=== PATIENT | female | born 1990 | race Caucasian/White ===

== ENCOUNTER 2021-02-09 07:33 | Outpatient (CLI) | payer MEDICAID, SELFPAY ==
--- NOTE | 2021-02-09 07:43 | US_ITS ---
WS: [id number] EARLY OBSTETRICAL ULTRASOUND (<14 WEEKS). HISTORY: SUPERVISION NORMAL , MULTIPAROUS COMPARISON: None available. Single intrauterine gestational sac is identified. Cardiac activity at 153 BPM. [place]-rump length tyler sures 1.1 cm which corresponds to a gestation of 7w2d. Normal-appearing yolk sac and amnion demonstra aarti. Very small subchorionic hemorrhage.Maximum diameter is 8 mm along the posterior gestational sac. No free fluid. Normal size ovaries with no mass. US/US OB <= 14 weeks fetus [id number] IMPRESSION: 1. Single intrauterine gestation of 7 weeks 2 days with an EDC of 09/26/2021. 2. Normal cardiac activity.
== END 2021-02-09 07:34 | disposition home or self-care (01) ==
LOC: RAD 07:38
PROVIDERS: PCP Family Medicine; Visit Provider Family Medicine
DX: Z34.80 Encounter for supervision of other normal pregnancy, unspecified trimester (principal); Z3A.01 Less than 8 weeks gestation of pregnancy
CPT/HCPCS: 76801

== ENCOUNTER 2021-03-25 14:31 | Emergency (ER) | payer SELFPAY ==
[2021-03-25 14:42] VITALS: BP 119/77; PULSE 93; RESP 16; TEMP 36.8; O2SAT 96; BMI 25.2
--- NOTE | 2021-03-25 15:39 | US_ITS ---
WS: [id number] Obstetrical ultrasound, limited. HISTORY: Threatened . COMPARISON: 02/09/2021. Single intrauterine gestation is identified. Heart rate at 160 bpm. Cervix is closed. Placenta is pos terior. Accurate placental positioning is not accurate at this early gestational age. Biometry consi stent with a gestation of 14 weeks and 1 day. Appropriate growth of the fetus since the prior ultraso und. No free fluid or adnexal masses. US/US OB limited [id number] IMPRESSION: 1. Normal cardiac activity. 2. Cervix is closed. 3. No retroplacental hemorrhage or abruption.
--- NOTE | 2021-03-25 15:43 | ED_ITS ---
HPI - General: Chief complaint: Vaginal Bleeding Stated complaint: 13 wks preg & spotting Time Seen by Provider: 03/25/21 15:36 History of Present Illness: HPI Narrative: This patient is a 31-year-old female who presents to the emergency department with complaint of vaginal bleeding. Patient states she is 13 weeks . Patient states she has had bright red blood when she is to the bathroom with a couple of clots. Patient states she believes her blood type is B-. Patient states that she had to have a RhoGam shot at 7 weeks. Patient states she has had to have RhoGam shots with all of her other pregnancies. Patient states that she is a G4, P3. Will do medical evaluation treat as needed. Complaint: vaginal bleeding Onset (ago): hour(s) Pain Consistency: intermittent Relieving factors: none Exacerbating factors: none Vaginal bleeding: light and clots Date of Last Menstrual Period: 12/09/20 Associated symptoms: Deny abdominal pain, dysuria, headache(s), nausea or vomiting Review of Systems General: Reports: 10 or more systems reviewed and unremarkable except in HPI and below Const: Denies: fever(s), chills, body aches or fatigue Eyes: Denies: change in vision or blurry vision ENMT: Denies: throat pain, hoarseness or mouth pain Card: Denies: chest pain, palpitations, irregular heart rhythm, edema, swelling of feet/ankles or lightheadedness Resp: Denies: dyspnea, productive cough, non-productive cough, wheezing or pain on inspiration GI: Denies: abdominal pain, nausea or vomiting : Reports: vaginal bleeding; Denies: flank pain, difficulty voiding, dysuria, urinary frequency, urinary urgency or urinary hesitancy Musc: Denies: neck pain, back pain, extremity pain, extremity swelling, joint pain, joint swelling, joint redness, joint warmth or limited range of motion Skin/Breast: Denies: rash, pruritus, erythema or skin tenderness Neuro: Denies: headache(s), numbness in extremities or weakness in extremities Psych: Denies: anxiety or depression [facility] ED Female Reproductive History: Date of last menstrual period: 12/09/20 Physical Exam Const: COMMON NORMALS: no acute distress, average body habitus, patient oriented x3, no limitations, healthy appearing, alert and well nourished HENMT: COMMON NORMALS: normocephalic, atraumatic, hearing grossly normal bilaterally, external ears normal, EAC's normal, TM's normal bilaterally, Normal external nose present, Normal nasal mucous membranes and turbinates present, moist oral mucous membranes, oropharynx normal, dentition normal and gingiva normal HEAD & SCALP: normocephalic and atraumatic NOSE: Normal external nose present and Normal nasal mucous membranes and turbinates present EXTERNAL EAR: Yes external ears normal EXTERNAL AUDITORY CANAL: EAC's normal TYMPANIC MEMBRANE: TM's normal bilaterally Neck/C-Spine: COMMON NORMALS: full ROM, no lymphadenopathy, supple, no meningeal signs, no JVD, Thyroid normal and No carotid bruits THYROID: Thyroid normal Chest: COMMONS NORMALS: normal inspection of the chest, normal palpation of entire chest wall, normal inspection of the breasts and normal palpation of the breasts Breast/axilla inspection: Yes normal inspection of the breasts BREAST/AXILLA PALPATION: Yes normal palpation of the breasts Resp: COMMON NORMALS: normal respiratory effort, No retractions, No use of accessory muscles, clear to auscultation bilaterally and percussion normal AUSCULTATION: clear to auscultation bilaterally PERCUSSION: percussion normal Cardio: COMMON NORMALS: no JVD, regular rate, regular rhythm, S1 normal heart sound present, S2 normal heart sound present, No gallops present (Cardio), No clicks present (Cardio), No murmurs present (Cardio), No rub (Cardio) and Peripheral pulses 2+ throughout RATE: regular rate RHYTHM: regular rhythm HEART SOUNDS: S1 normal heart sound present and S2 normal heart sound present PERIPHERAL PULSES: Peripheral pulses 2+ throughout GI: COMMON NORMALS: Normal to inspection, nondistended, normoactive bowel sounds present, Soft to palpation, non-tender, No hepatosplenomegaly present, no masses and no bruits PALPATION: Yes Soft to palpation and Yes No hepatosplenomegaly present Back/Pelvis: COMMON NORMALS: thoracic and lumbar spine normal to inspection, no thoracic nor lumbar tenderness, thoraco-lumbar ROM normal and straight leg raise negative bilaterally Extremity: COMMON NORMALS: normal to inspection, full ROM, capillary refill normal, no joint enlargement, no clubbing, cyanosis or edema, no calf tenderness and no pedal edema Neuro: COMMON NORMALS: patient oriented x3 SENSORIUM/ORIENTATION: Yes alert MENINGEAL SIGNS: Yes no meningeal signs Course Reevaluation(s): Reevaluation #1: Negative evaluation in the emergency department any acute findings. Ultrasound of the appears to be stable. No signs of previa or abruption. Patient will be given RhoGam. Patient be discharged home pelvic rest and follow-up with EXPLOSIVE ORDNANCE DISPOSAL TECHNICIAN as instructed patient states understanding. Patient is discharged Time: 17:14 Vital Signs: Vital signs: Vital Signs Temperature 98.2 F 03/25/21 14:42 Pulse Rate 93 03/25/21 14:42 Respiratory Rate 16 03/25/21 14:42 Blood Pressure 119/77 03/25/21 14:42 Pulse Oximetry 96 03/25/21 14:42 MDM - OB/Uterine Contractions MDM Narrative: Medical decision making narrative: This patient is a 31-year-old female who presents to the emergency department with complaint of vaginal bleeding. Patient states she is 13 weeks . Patient states she has had bright red blood when she is to the bathroom with a couple of clots. Patient states she believes her blood type is B-. Patient states that she had to have a RhoGam shot at 7 weeks. Patient states she has had to have RhoGam shots with all of her other pregnancies. Patient states that she is a G4, P3. Negative evaluation in the emergency department any acute findings. Ultrasound of the appears to be stable. No signs of previa or abruption. Patient will be given RhoGam. Patient be discharged home pelvic rest and follo w-up with EXPLOSIVE ORDNANCE DISPOSAL TECHNICIAN as instructed patient states understanding. Patient is discharged Medical Records: Attestation: I reviewed the patient's medical records. Lab Data: Attestation: I reviewed the patient's lab results. Labs: Lab Results 03/25/21 03/25/21 03/25/21 Range/Units 14:14 14:14 16:05 WBC 9.6 (4.0-10.0) 10^3/ uL RBC 4.08 L (4.1-5.3) 10^6/u L Hgb 13.0 (11.5-15.3) g/dL Hct 39.2 (37.0-47.0) % MCV 96.1 (81-99) fL MCH 31.9 (28.0-34.0) pg MCHC 33.2 (30.0-36.0) g/dL RDW 14.1 (12.1-15.1) % Plt Count 154 (130-400) 10^3/c mm MPV 10.4 (7.4-10.4) fL Neut % (Auto) 68.5 % Lymph % (Auto) 23.9 % Sierra % (Auto) 5.4 % Eos % (Auto) 1.5 % Baso % (Auto) 0.3 % Neut # (Auto) 6.55 (1.8-7.7) 10^3/u L Lymph # (Auto) 2.3 (0.8-4.8) 10^3/u L Sierra # (Auto) 0.5 (0.2-0.9) 10^3/u L Eos # (Auto) 0.1 (0.0-0.8) 10^3/u L Baso # (Auto) 0.0 (0.0-0.1) 10^3/u L Nucleated RBC % (a uto) 0 % Nucleated RBCs # 0.0 /100WBC PT (12.1-14.9) SECO NDS INR (0.8-1.2) APTT (23.9-36.7) SECO NDS Sodium 135 L (136-145) mmol/L Potassium 4.0 (3.5-5.1) mmol/L Chloride 102 (98-107) mmol/L Carbon Dioxide 24 (22-29) mmol/L Anion Gap 13.0 (5-19) BUN 9 (6-20) mg/dL Creatinine 0.4 L (0.5-0.9) mg/dL GFR Calculation 185.0 H (90-130) mL/min Glucose 67 (65-115) mg/dL Calculated Osmolal ity 277 L (285-295) mOsm/k g Calcium 9.5 (8.5-10.5) mg/dL Ser , [place] 99509.00 mIU/mL Urine Color Yellow (Yellow) Urine Appearance Hazy A (CLEAR) Urine pH 7 (5-7) Ur Specific Gravit y 1.015 (1.005-1.030) Urine Protein Neg (Negative) Urine Glucose (UA) Norm (Normal) Urine Ketones Negative (Negative) Urine Blood 3+ H (Negative) Urine Nitrate Negative (Negative) Urine Bilirubin Neg (Negative) Urine Urobilinogen Norm (Negative) mg/dL Ur Leukocyte Marilu ase Negative (Negative) Urine RBC 0-4 H (0-2) /hpf Urine WBC 25-40 H (0-5) /hpf Ur Squamous Epith Cells 0-4 H (0-5) /hpf Amorphous Sediment Not Reportable Urine Bacteria 1+ H (NONE) /hpf Blood Type Rho(D) Type 03/25/21 03/25/21 Range/Units 16:28 16:30 WBC (4.0-10.0) 10^3/ uL RBC (4.1-5.3) 10^6/u L Hgb (11.5-15.3) g/dL Hct (37.0-47.0) % MCV (81-99) fL MCH (28.0-34.0) pg MCHC (30.0-36.0) g/dL RDW (12.1-15.1) % Plt Count (130-400) 10^3/c mm MPV (7.4-10.4) fL Neut % (Auto) % Lymph % (Auto) % Sierra % (Auto) % Eos % (Auto) % Baso % (Auto) % Neut # (Auto) (1.8-7.7) 10^3/u L Lymph # (Auto) (0.8-4.8) 10^3/u L Sierra # (Auto) (0.2-0.9) 10^3/u L Eos # (Auto) (0.0-0.8) 10^3/u L Baso # (Auto) (0.0-0.1) 10^3/u L Nucleated RBC % (a uto) % Nucleated RBCs # /100WBC PT 13.00 (12.1-14.9) SECO NDS INR 0.95 (0.8-1.2) APTT 28.8 (23.9-36.7) SECO NDS Sodium (136-145) mmol/L Potassium (3.5-5.1) mmol/L Chloride (98-107) mmol/L Carbon Dioxide (22-29) mmol/L Anion Gap (5-19) BUN (6-20) mg/dL Creatinine (0.5-0.9) mg/dL GFR Calculation (90-130) mL/min Glucose (65-115) mg/dL Calculated Osmolal ity (285-295) mOsm/k g Calcium (8.5-10.5) mg/dL Ser , Linda i-Qnt mIU/mL Urine Color (Yellow) Urine Appearance (CLEAR) Urine pH (5-7) Ur Specific Gravit y (1.005-1.030) Urine Protein (Negative) Urine Glucose (UA) (Normal) Urine Ketones (Negative) Urine Blood (Negative) Urine Nitrate (Negative) Urine Bilirubin (Negative) Urine Urobilinogen (Negative) mg/dL Ur Leukocyte Marilu ase (Negative) Urine RBC (0-2) /hpf Urine WBC (0-5) /hpf Ur Squamous Epith Cells (0-5) /hpf Amorphous Sediment Urine Bacteria (NONE) /hpf Blood Type A Negative Rho(D) Type Negative / 0 Imaging Data^: US OB: Attestation: I personally reviewed and interpreted this imaging study as fo llows: Radiologist's impression: Single intrauterine gestation is identified. Heart rate at 160 bpm. Cervix is closed. Placenta is posterior. Accurate placental positioning is not accurate at this early gestational age. Biometry consistent with a gestation of 14 weeks and 1 day. Appropriate growth of the fetus since the prior ultrasound. No free fluid or adnexal masses. US/US OB limited [id number] IMPRESSION: 1. Normal cardiac activity. 2. Cervix is closed. 3. No retroplacental hemorrhage or abruption. Discharge Plan Discharge Clinical Impression: Vaginal bleeding, Threatened , Need for rhogam due to Rh negative mother Condition: Stable Discharge Orders: Discharge ED (Routine); Ordered 03/25/21 Ordered By: Mark Price Referrals: Hector Healy MD [Primary Care Provider] - Discharge Diet: Advance as tolerated Discharge Activity: Resume usual activity Activity Restrictions/Additional Instructions: Avoid ibuprofen or other NSAID or aspirin based products. Pelvic rest as instructed. Follow-up with EXPLOSIVE ORDNANCE DISPOSAL TECHNICIAN for full EXPLOSIVE ORDNANCE DISPOSAL TECHNICIAN evaluation and treatment for vaginal bleeding threatened . You have been given RhoGam in the emergency department. This may need to be repeated. Follow-up as instructed Coding Level of Care Code ED [place] Supervisor for Chg Fwd Exam Comprehensive
[2021-03-25 16:23] LABS: Basophils % 0.3 %; Eosinophils # 0.1 10^3/uL (0.0-0.8); Eosinophils % 1.5 %; Hematocrit 39.2 % (37.0-47.0); Lymphocytes # 2.3 10^3/uL (0.8-4.8); Lymphocytes % 23.9 %; Mean Corpuscular HGB Conc 33.2 g/dL (30.0-36.0); Mean Corpuscular Hemoglobin 31.9 pg (28.0-34.0); Mean Corpuscular Volume 96.1 fL (81-99); Mean Platelet Volume 10.4 fL (7.4-10.4); Monocytes # 0.5 10^3/uL (0.2-0.9); Monocytes % 5.4 %; Neutrophils # 6.55 10^3/uL (1.8-7.7); Neutrophils % 68.5 %; Nucleated Red Blood Cells % 0 %; Platelet Count 154 10^3/cmm (130-400); Red Blood Count 4.08 10^6/uL (4.1-5.3); Red Cell Distribution Width 14.1 % (12.1-15.1); White Blood Count 9.6 10^3/uL (4.0-10.0)
[2021-03-25] MEDS: sodium chloride 0.9% 1,000 ML 999 ML IV (16:25)
[2021-03-25 16:34] LABS: Add Urine Microscopic? YES; Bilirubin Urine Neg (Negative); Blood Urine 3+ (Negative); Glucose Urine UA Norm (Normal); Ketones Urine Negative (Negative); Leukocyte Esterase Urine Negative (Negative); Nitrate Urine Negative (Negative); Protein Urine Neg (Negative); Specific Gravity, Urine 1.015 (1.005-1.030); Urine Appearance Hazy (CLEAR); Urine Color Yellow (Yellow); Urobilinogen Urine Norm (Negative); pH Urine 7 (5-7)
[2021-03-25 16:37] LABS: Bacteria Urine 1+ /hpf; RBC Urine 0-4 /hpf (0-2); Squamous Epithelial Cell Urine 0-4 /hpf (0-5); WBC Urine 25-40 /hpf (0-5)
[2021-03-25 16:54] LABS: INR 0.95 (0.8-1.2)
[2021-03-25 16:55] LABS: Partial Thromboplastin Time 28.8 SECONDS (23.9-36.7)
[2021-03-25 17:11] LABS: Blood Urea Nitrogen 9 mg/dL (6-20); Calcium 9.5 mg/dL (8.5-10.5); Carbon Dioxide 24 mmol/L (22-29); Chloride 102 mmol/L (98-107); Glucose 67 mg/dL (65-115); Osmolality Calculated 277 mOsm/kg (285-295); Sodium 135 mmol/L (136-145)
[2021-03-25 18:46] VITALS: BP 102/67; PULSE 85; RESP 18; TEMP 36.7; O2SAT 98
[2021-03-25 19:15] VITALS: BP 127/79; PULSE 92; RESP 18; O2SAT 97
== END 2021-03-25 19:17 | disposition home or self-care (01) ==
PROVIDERS: Emergency Provider Emergency Medicine; PCP Family Medicine
DX: O20.0 Threatened abortion (principal); O36.0910 Maternal care for other rhesus isoimmunization, first trimester, not applicable or unspecified; Z3A.13 13 weeks gestation of pregnancy; Z23 Encounter for immunization
CPT/HCPCS: 76815; 80048; 80500; 81001; 84702; 85025; 85610; 85730; 86850; 86870; 86900; 90384; 96360; 99283; J7030

== ENCOUNTER 2021-05-06 13:46 | Outpatient (CLI) | payer BC, MEDICAID, SELFPAY ==
--- NOTE | 2021-05-06 13:52 | US_ITS ---
WS: [id number] OBSTETRICAL ULTRASOUND COMPLETE HISTORY: Anatomy COMPARISON: 03/25/2021 and 02/09/2021 Single intrauterine gestation in each presentation. Cervix is Closed and normal length. Cervical length is 3.5 cm. Normal amount of amniotic fluid surrounds the fetus. Placenta: Posterior, no previa. Placenta is low-lying versus partial previa. Placenta grade 1 Heart: 150 BPM. Four chambers are identified. RIGHT and LEFT outflow tracts are unremarkable. Anatomy: Intracranial structures and spine are normal. kidneys, stomach and urinary bladd er are unremarkable. Abdominal wall, three-vessel cord and cord insertion site are normal. 4 extremities are present. profile: Unremarkable. Gender: Male. measurements: BPD = 4.6 cm = 20w0d HC = 18.3 cm = 20w5d AC = 15.2 cm = 20w3d FL = 3.1 cm = 19w3d EFW: 329 g. Biometry is internally concordant. AGA by ultrasound: 20w1d DAVIN by ultrasound: 09/22/2021 US/US OB >= 14 weeks fetus [id number] IMPRESSION: 1. Single intrauterine gestation of 20w1d with an DAVIN of 09/22/2021. Appropria te growth since the first trimester ultrasound. 2. Unremarkable screening survey of anatomy. 3. Low lying versus partial previa posterior placenta. Recommend follow-up sec ond trimester for resolution.
== END 2021-05-06 13:47 | disposition home or self-care (01) ==
PROVIDERS: PCP Family Medicine; Visit Provider Family Medicine
DX: Z36.89 Encounter for other specified antenatal screening (principal); Z3A.20 20 weeks gestation of pregnancy
CPT/HCPCS: 76805

== ENCOUNTER → 2021-07-02 09:45 | Day surgery (SDC) | payer BC, MEDICAID, SELFPAY ==
--- NOTE | 2021-07-02 10:03 | US_ITS ---
WS: [id number] ULTRASOUND OB FOCUSED HISTORY: PLACENTA PREVIA COMPARISON: 05/06/2021 Fetus is in cephalic position. Cervix is closed and measures 4.1 cm in length. heart rate at 131 BPM. Placenta is posterior with no previa or abruption. Placenta grade 1. Tip of the placenta ends 5 cm fr om the internal cervical os. Normal amount of amniotic fluid. [place] [id number] IMPRESSION: 1. Posterior placenta, grade 1. 2. No placenta previa.
[2021-07-02 10:39] VITALS: BP 109/59; PULSE 72; RESP 18; TEMP 36.9; O2SAT 99; BMI 25.9
[2021-07-02 10:40] VITALS: BP 109/59; PULSE 72; RESP 18; TEMP 36.9; O2SAT 99
[2021-07-02 11:24] VITALS: BP 107/59; PULSE 74; RESP 18; TEMP 36.9; O2SAT 98; O2SAT 99
== END ==
PROVIDERS: PCP Family Medicine; Visit Provider Family Medicine
DX: O44.00 Complete placenta previa NOS or without hemorrhage, unspecified trimester (principal); Z3A.00 Weeks of gestation of pregnancy not specified
CPT/HCPCS: 36415; 76816; 86850; 86900; 90384; 96372

== ENCOUNTER 2021-09-27 08:49 | Inpatient (IN) | payer BC, MEDICAID, SELFPAY ==
[2021-09-27] VITALS (61 sets, daily range): BP systolic 101–177; BP diastolic 53–100; PULSE 64–102; RESP 16–17; TEMP 35.8–36.4; O2SAT 85–100; BMI 27.1
--- NOTE | 2021-09-27 09:02 | PM.HP ---
Providers/Chief Complaint Admitting Physician: Hector Healy MD Primary Care Provider: Hector Healy MD Chief Complaint: induction History of Present Illness Maira Lee is a 31 year old at 40.1 weeks gestation by 7-week ultrasound inconsistent with LMP. Her is complicated by Rh-, smoking in early first trimester now quit, chlamydia positive with test of cure, first trimester bleeding status post RhoGam at 13 weeks, COVID-19 May 10, 2021, elevated 1 hour GTT with normal 3-hour GTT. The patient presents to labor delivery triage for a scheduled induction for postdates. Upon presentation she is 3 cm dilated and 50% effaced. She has been having sporadic contractions at home. She denies any leaking fluid or vaginal bleeding. She denies any fevers, chest pains, shortness of breath, nausea, vomiting, diarrhea, constipation, dysuria. Medications/Allergies Home Medications Medication Instructions Recorded Confirmed Last Taken Type prenat.vits,kasey,bka-vhhi-zajip 1 tab PO DAILY 04/23/21 09/27/21 09/27/21 07:00 History Allergies Allergy/AdvReac Type Severity Reaction Status Date / Time No Known Allergies Allergy Verified 05/20/21 13:11 PFSH Acute PFSH: Family History Grandmother Ovarian cancer Paternal Hypertension Maternal Grandfather Diabetes Maternal Hypertension Maternal Denies family history of CAD (coronary artery disease) Clotting disorder Hyperlipidemia Chronic kidney disease (CKD) Bleeding disorder Thyroid disease Stroke Social History (Updated 09/27/21 @ 21:56 by Hector Healy MD) Smoking and tobacco status: former smoker Alcohol intake: never Substance/Drug Use: never Female Reproductive History: Date of last menstrual period: 12/09/20 Physical Exam Narrative: EXAM NARRATIVE: General: Alert and oriented x3 Eyes: Pupils equal round and reactive to light and accommodation Mouth: Mucous membranes moist, pharynx non-erythematous Cardiac: Regular rate and rhythm without murmurs Lungs: Clear to auscultation bilaterally without wheezes, crackles or rhonchi Abdomen: Soft, non-tender, fundus consistent with gestational age Extremities: Trace edema in the bilateral lower extremities Data : 09/27/21 09:30 A&P Assessment and plan (1) Rh negative status during : Status: Acute (2) Intrauterine : Status: Acute (3) LGSIL (low grade squamous intraepithelial dysplasia): Status: Acute Additional A&P Information Patient is doing we will plan to induce using IV Pitocin. The patient is GBS negative. Her Covid 19 swab was negative. The patient is feeling well at this time. heart tones are in the mid 140s with moderate variability good accelerations with a category 1 tracing. All questions were answered. The patient and her significant other are in agreement with the current plan of care. Attestations Medical Necessity Statement*: The patient will be here for greater than 2 midnights due to routine intrapartum and management of labor and delivery. Coding Level of Care Code Acute Technical Support Assistant for Chg Fwd Diagnoses Rh negative status during O26.899; Z67.91 Intrauterine Z34.90 LGSIL (low grade squamous intraepithelial dysplasia)
[2021-09-27] MEDS: dextrose 5%-lactated ringers 1,000 ML 125 ML IV ×2 (09:42→20:21)
[2021-09-27] MEDS: oxytocin 30 UNIT/500 ML BAG IV (09:43)
[2021-09-27 09:53] LABS: Basophils % 0.5 %; Eosinophils # 0.1 10^3/uL (0.0-0.8); Eosinophils % 0.9 %; Hematocrit 36.9 % (37.0-47.0); Hemoglobin 12.5 g/dL (11.5-15.3); Lymphocytes # 1.7 10^3/uL (0.8-4.8); Lymphocytes % 22.8 %; Mean Corpuscular HGB Conc 33.9 g/dL (30.0-36.0); Mean Corpuscular Hemoglobin 32.2 pg (28.0-34.0); Mean Corpuscular Volume 95.1 fl (81-99); Mean Platelet Volume 10.5 fL (7.4-10.4); Monocytes # 0.5 10^3/uL (0.2-0.9); Monocytes % 5.9 %; Neutrophils # 5.22 10^3/uL (1.8-7.7); Neutrophils % 68.5 %; Nucleated Red Blood Cells % 0 %; Platelet Count 150 10^3/cmm (130-400); Red Blood Count 3.88 10^6/uL (4.1-5.3); Red Cell Distribution Width 15.4 % (12.1-15.1); White Blood Count 7.6 10^3/uL (4.0-10.0)
[2021-09-27] MEDS: lactated ringers 1,000 ML 999 ML IV ×2 (17:32→18:23)
--- NOTE | 2021-09-27 18:45 | ANES.PREANE2 ---
Pre-Anesthetic Assessment Pre-Anesthetic Assessment: Height/Weight: Height 1.57 m Weight 67.132 kg Temp Pulse Resp BP Pulse Ox 97.5 F L 73 17 101/53 100 09/27/21 13:57 09/27/21 18:41 09/27/21 09:08 09/27/21 18:41 09/27/21 18:39 Preop Diagnosis: Active Labor Proposed Procedure: Labor Epidural Was Beta Edilberto taken within 24 hours: N/A Was Clonidine taken within 24 hours: N/A Social: Social History: Tobacco Exam: Pre-Anes Outpt Exam: alert, oriented x 3 and clear to auscultation bilaterally Airway: Submandibular: WNL Cervical ROM: WNL MP: 1 Dentition: Full History/ROS: No significant history except as noted Pulmonary: Pulmonary: None reported CV/HEM: CV/HEM: None reported : : None reported Hepatic: Hepatic: None reported GI: GI: None reported Metabolic: Metabolic: None reported Musc/skel: Musc/skel: None reported Neuropsych: Neuropsych: None reported Anesthetic Plan: ASA status: 2 Anesthesia: Eval. for regional block Risk of > 500 ml blood loss (7ml/kg in children): No Meds/Allergies Current Medications: Current Medications Generic Name Dose Route Start Last Admin Trade Name Freq PRN Reason Stop Dose Admin Oxytocin 30 unit in 500 ml s @ 1 mls/hr 09/27/21 09:15 09/27/21 12:30 Pitocin IV 20 milliunit/min .Q24H MEHREEN 20 mls/hr Titration Protocol 1 MILLIUNIT/MIN Dextrose/Lactated Ringer's 1,000 mls @ 125 m ls/hr 09/27/21 09:15 09/27/21 17:33 Dextrose 5%-Lact ated Ringers IV Infused .Q8H MEHREEN Infusion Ropivacaine 200 mg in 100 mls @ 13 mls/hr 09/27/21 17:30 09/27/21 18:33 Naropin Premix EPIDURAL 11 mls/hr .Q7H42M MEHREEN Administration Lactated Ringer's 1,000 mls @ 999 m ls/hr 09/27/21 17:26 09/27/21 18:23 Lactated Ringers IV 999 mls/hr .Q1H1M PRN Administration See label comment s PFSH Anesthesia PFSH: Family History Grandmother Ovarian cancer Paternal Hypertension Maternal Grandfather Diabetes Maternal Hypertension Maternal Denies family history of CAD (coronary artery disease) Clotting disorder Hyperlipidemia Chronic kidney disease (CKD) Bleeding disorder Thyroid disease Stroke Female Reproductive History: Date of last menstrual period: 12/09/20 : 4 Data Anesthesia CBC & Chem 7: 09/27/21 09:30 Other Labs: Laboratory Results - last 48 hr 09/27/21 09:30 WBC 7.6 RBC 3.88 L Hgb 12.5 Hct 36.9 L MCV 95.1 MCH 32.2 MCHC 33.9 RDW 15.4 H Plt Count 150 MPV 10.5 H Neut % (Auto) 68.5 Lymph % (Auto) 22.8 [place] % (Auto) 5.9 Eos % (Auto) 0.9 Baso % (Auto) 0.5 Neut # (Auto) 5.22 Lymph # (Auto) 1.7 [place] # (Auto) 0.5 Eos # (Auto) 0.1 Baso # (Auto) 0.0 Nucleated RBC % (auto) 0 Nucleated RBCs # 0.0 Cardiac Studies: No Data to Display
--- NOTE | 2021-09-27 18:48 | ANES.PROC ---
Anesthesia Procedures Procedure/Date: 09/27/21 Labor Epidural Epidural: Time Out Performed: Yes Consents Signed: Procedure Consent Consent: from patient Lumbar Level: L3-L4 Epidural position: sitting Epidural procedure: sterile prep of area, 1% lidocaine to numb the area, negative for paresthesia passed, neg for paresthesia, test dose given, placed PCEA, no systemic response, sterile dressing applied, L.U.D. no apparent complications and 0.2% Ropiavacaine @ mls/hr (11 ml/hr) Additional Comments: YARELIS at 6 cm catheter threaded to 12 cm
--- NOTE | 2021-09-27 21:58 | P.PCNOB_ITS ---
Delivery Note: Date of delivery: September 27, 2021 Pre-delivery diagnoses: 1. Intrauterine at 40.1 weeks gestation 2. Rh- status 3. Smoking first trimester now quit 4. Chlamydia with test of cure 5. First trimester bleeding status post RhoGam at 13 weeks 6. COVID-19 infection May 10, 2021 7. Elevated 1 hour GTT with normal 3-hour GTT Post-delivery diagnoses: 1. Intrauterine status post spontaneous vaginal delivery at 40.1 weeks gestation 2. Rh- status 3. Smoking first trimester now quit 4. Chlamydia with test of cure 5. First trimester bleeding status post RhoGam at 13 weeks 6. COVID-19 infection May 10, 2021 7. Elevated 1 hour GTT with normal 3-hour GTT Procedure: Spontaneous vaginal delivery Op report anesthesia: Epidural Estimated blood loss (mL): 100 Findings: 1. Healthy infant male weighing 7 pounds 11 ounces with Apgars of 7 and 9 2. Intact placenta with peripheral umbilical cord insertion site Pre-Delivery Course: The patient presented to labor delivery on 09/27/2021 for a scheduled induction of labor for postdates. The patient was 3 cm upon admission. She was started on IV Pitocin and made steady change. She received a laboring epidural by the evening of 09/27/2021. She was 6 cm dilated with a bulging bag of water, so AROM was performed at 1938 on 09/27/2021 to augment labor. Clear fluid was noted. There were no concerning heart tone dec elerations. The patient was complete at 2100 on 09/27/2021. Delivery: The patient began pushing at 2109 on 09/27/2021. The infant delivered at 2134 on 09/27/2021. The infant delivered in the OA position. The left shoulder was anterior shoulder and it delivered with ease. There was no nuchal cord. The rest of the body delivered without complication. The 's mouth and nose were bulb suctioned by myself and he was crying immediately upon delivery. The was placed on the mother's chest where the nurses were waiting to care for him. The cord was clamped after approximately 1 minute by myself and cut by the infant's father. Cord blood was obtained. The cord was then drained of blood and uterine massage was carried out. Traction was placed on umbilical cord and the placenta delivered without complication at 2139 on 09/27/2021. The placenta was noted to be intact with a peripheral insertion site. The uterus was massaged and the patient had very little bleeding. The cervix was inspected and no lacerations were noted. The vaginal wall was inspected and no lacerations were noted. Currently both the and mother are doing very well. History History History 4 Term 3 Miscarriages/Ectopic 0 0 Living Children 3 A&P Assessment and plan (1) Rh negative status during : Status: Acute (2) Intrauterine : Status: Acute (3) LGSIL (low grade squamous intraepithelial dysplasia): Status: Acute Coding Level of Care Code Acute Composite Laminator for Chg Fwd Diagnoses Rh negative status during O26.899; Z67.91 Intrauterine Z34.90 LGSIL (low grade squamous intraepithelial dysplasia)
[2021-09-27] MEDS: oxytocin 30 UNIT/500 ML BAG 300 UNIT IV (22:23)
[2021-09-28] VITALS (18 sets, daily range): BP systolic 98–122; BP diastolic 53–64; PULSE 72–92; RESP 16; TEMP 36.2–36.8
--- NOTE | 2021-09-28 08:53 | ANE.PACU2 ---
Inpatient post-anesthesia follow up: Airway intact: Yes Vital signs: Temperature 98.2 F Pulse Rate 82 Respiratory Rate 16 Blood Pressure 117/53 Pulse Oximetry 100 Oxygen Delivery Me thod Room Air Oxygen Flow Rate Fraction of Inspir ed Oxygen Hydration adequate: Yes Nausea and vomiting: No Pain level: 2 Mental status: Baseline
--- NOTE | 2021-09-28 09:02 | P.PN_ITS ---
Subjective Subjective: Interval history: The patient is doing well today. She is ambulating, voiding, passing gas and tolerating food by mouth. Her bleeding is decreasing well. Vitals/I&O/Wt Last Vital Signs Temp 98.2 F 09/28/21 07:04 Pulse 82 09/28/21 07:05 Resp 16 09/27/21 23:29 BP 117/53 09/28/21 07:05 Pulse Ox 100 09/27/21 19:04 09/27/21 09/28/21 09/28/21 22:59 06:59 14:59 Intake Total 2089.017 / 2115.800 300 / 2415.800 Output Total 300 / 300 1360 / 1660 Balance 1789.017 / 1815.800 -1060 / 755.800 Weight last 48 hrs Weight 148 lb Physical Exam Narrative: EXAM NARRATIVE: General: Alert and oriented x3 Cardiac: Regular rate and rhythm without murmurs Lungs: Clear to auscultation bilaterally without wheezes, crackles or rhonchi Abdomen: Soft, non-tender, fundus is firm and 2 cm below the umbilicus Extremities: Trace edema in the bilateral lower extremities Urinary Catheter Management^: Zheng: Cath Placed During This Visit: yes, but has since been removed by the nurse Reason for Continuing Indwelling Catheter: Required Immobilization for Trauma or Surgery or Anesthesia Urinary Catheter Date of Insertion: 09/27/21 Urinary Catheter Time of Insertion: 19:00 Date Urinary Catheter Removed: 09/27/21 Time Urinary Catheter Discontinued: 21:07 Data : 09/28/21 09:19 A&P Additional A&P Information The patient is doing well today. She is showing no signs of complications. Continue with routine care. Plan for discharge home tomorrow. Attestations Medical Necessity Statement*: The patient will be here for greater than 2 midnights due to routine intrapartum and management of labor and delivery. Coding Level of Care Code Acute Vending Attendant for Suzanna Monsalve
[2021-09-28] MEDS: prenatal vitamin Capsule 1 CAP PO (09:11)
[2021-09-28] MEDS: docusate sodium 100 mg Capsule PO ×2 (09:11→17:57)
[2021-09-28] MEDS: ibuprofen 800 mg tablet PO ×3 (09:11→21:02)
[2021-09-28 09:32] LABS: Hematocrit 34.8 % (37.0-47.0); Hemoglobin 11.4 g/dL (11.5-15.3); Mean Corpuscular HGB Conc 32.8 g/dL (30.0-36.0); Mean Corpuscular Hemoglobin 31.5 pg (28.0-34.0); Mean Corpuscular Volume 96.1 fl (81-99); Mean Platelet Volume 10.4 fL (7.4-10.4); Platelet Count 141 10^3/cmm (130-400); Red Blood Count 3.62 10^6/uL (4.1-5.3)
--- NOTE | 2021-09-28 18:04 | PC.NURSE ---
Rhogam given IM in right ventrogluteal
[2021-09-29 04:04] VITALS: BP 101/54; PULSE 68
[2021-09-29 04:05] VITALS: TEMP 36.4
--- NOTE | 2021-09-29 08:14 | PM.DCS ---
Discharge Providers Date of Admission: 09/27/21 08:49 Date of Discharge: September 29, 2021 Attending Provider at Admission: Hector Healy MD Attending Provider at Discharge: Hector Healy MD Primary Care Provider: Hector Healy MD Diagnoses at Discharge Discharge Diagnosis (1) Rh negative status during : Status: Resolved (2) Intrauterine : Status: Resolved (3) LGSIL (low grade squamous intraepithelial dysplasia): Status: Acute Other Information Additional DC diagnoses/information: 1. Intrauterine status post spontaneous vaginal delivery at 40.1 weeks gestation 2. Rh- status 3. Smoking first trimester now quit 4. Chlamydia with test of cure 5. First trimester bleeding status post RhoGam at 13 weeks 6. COVID-19 infection May 10, 2021 7. Elevated 1 hour GTT with normal 3-hour GTT 8. Delivery of healthy infant male weighing 7 pounds 11 ounces with Apgars of 7 and 9 Reason for Visit Reason for Visit: induction Hospital Course Hospital Course Pre-Delivery Course: The patient presented to labor delivery on 09/27/2021 for a scheduled induction of labor for postdates. The patient was 3 cm upon admission. She was started on IV Pitocin and made steady change. She received a laboring epidural by the evening of 09/27/2021. She was 6 cm dilated with a bulging bag of water, so AROM was performed at 1938 on 09/27/2021 to augment labor. Clear fluid was noted. There were no concerning heart tone decelerations. The patient was complete at 2100 on 09/27/2021. Delivery: The patient began pushing at 2109 on 09/27/2021. The delivered at 2134 on 09/27/2021. The delivered in the OA position. The left shoulder was anterior shoulder and it delivered with ease. There was no nuchal cord. The rest of the body delivered without complication. The 's mouth and nose were bulb suctioned by myself and he was crying immediately upon delivery. The was placed on the mother's chest where the nurses were waiting to care for him. The cord was clamped after approximately 1 minute by myself and cut by the infant's father. Cord blood was obtained. The cord was then drained of blood and uterine massage was carried out. Traction was placed on umbilical cord and the placenta delivered without complication at 2139 on 09/27/2021. The placenta was noted to be intact with a peripheral insertion site. The uterus was massaged and the patient had very little bleeding. The cervix was inspected and no lacerations were noted. The vaginal wall was inspected and no lacerations were noted. course: The patient has done well without any complications. She is ambulating, voiding, passing gas and tolerating food by mouth. Her bleeding is well controlled. The patient's pain is well controlled. Routine discharge instructions were discussed and all questions were answered. The patient is in agreement with discharge home at this time. Physical Exam Narrative: EXAM NARRATIVE: General: Alert and oriented x3 Cardiac: Regular rate and rhythm without murmurs Lungs: Clear to auscultation bilaterally without wheezes, crackles or rhonchi Abdomen: Soft, mild tenderness over the uterus. Uterus is firm and 2 cm below the umbilicus Extremities: Trace edema Urinary Catheter Management^: Zheng: Cath Placed During This Visit: yes, but has since been removed by the nurse Reason for Continuing Indwelling Catheter: Required Immobilization for Trauma or Surgery or Anesthesia Urinary Catheter Date of Insertion: 09/27/21 Urinary Catheter Time of Insertion: 19:00 Date Urinary Catheter Removed: 09/27/21 Time Urinary Catheter Discontinued: 21:07 Discharge Data Data Completed and Pending: Labs from last 24 hours 09/28/21 09/28/21 09/27/21 09:19 09:19 09:20 WBC 11.0 H RBC 3.62 L Hgb 11.4 L Hct 34.8 L MCV 96.1 MCH 31.5 MCHC 32.8 RDW 15.0 Plt Count 141 MPV 10.4 Blood Type A Negative Rho(D) Type Negative Antibody Screen Negative Antibody Identific ation Cancelled Screen Negative Vitals: Last Vital Signs Temp 97.5 F L 09/29/21 04:05 Pulse 68 09/29/21 04:04 Resp 16 09/28/21 17:58 BP 101/54 09/29/21 04:04 Pulse Ox 100 09/27/21 19:04 Discharge Plan Discharge Patient Disposition: Home Condition: Good Prescriptions: New ibuprofen 800 mg Tablet 800 mg PO TID Qty: 30 RF: 0 Continued prenat.vits,kasey,mwk-gxri-bwnct Tablet 1 tab PO DAILY RF: 0 Discharge Orders: Discharge Order (Routine); Ordered 09/29/21 Ordered By: Hector Healy Referrals: Hector Healy MD [Primary Care Provider] - 11/08/21 9:50 am Discharge Diet: Usual diet Discharge Activity: Increase activity as tolerated Patient Instructions: Depression (DC), and Nipple Soreness (DC), and Breast Engorgement (DC), and Plugged Ducts (DC), How to Increase Your Milk Supply (DC), Preeclampsia and Eclampsia After Delivery (GEN), Breast Care for the Mother (DC), OB Discharge Report, Opioid Safety, OB [facility] - [facility], Abnormal Bleeding Activity Restrictions/Additional Instructions: Nothing per vagina for 6 weeks Discharge Attestations Time Spent in Discharge Care*: greater than 30 min Quality Metrics Clinical Quality Measures During this hospital stay, did patient experience: None Coding Level of Care Code Acute Chg FW DC note Diagnoses Rh negative status during O26.899; Z67.91 Intrauterine Z34.90 LGSIL (low grade squamous intraepithelial dysplasia)
[2021-09-29 09:15] VITALS: BP 128/61; PULSE 82; RESP 16; TEMP 36.3
[2021-09-29 09:17] VITALS: BP 128/61; PULSE 82; TEMP 36.3
== END 2021-09-29 09:15 | disposition home or self-care (01) | DRG 806 ==
PROVIDERS: Admitting Provider Family Medicine; PCP Family Medicine; Visit Provider Family Medicine
DX: O48.0 Post-term pregnancy (principal); O36.0930 Maternal care for other rhesus isoimmunization, third trimester, not applicable or unspecified; Z37.0 Single live birth; Z3A.40 40 weeks gestation of pregnancy; O99.892 Other specified diseases and conditions complicating childbirth; N87.9 Dysplasia of cervix uteri, unspecified
CPT/HCPCS: 36415; 51702; 59025; 59409; 85025; 85027; 85460; 86850; 86900; 90384; 98960; 99211; J2795

== ENCOUNTER 2024-01-17 07:12 | Inpatient (IN) | payer MEDICAID, SELFPAY ==
[2024-01-17] VITALS (49 sets, daily range): BP systolic 85–151; BP diastolic 47–89; PULSE 63–104; RESP 14–18; TEMP 35.9–36.8; O2SAT 93–100; BMI 28.6
[2024-01-17] MEDS: ampicillin 2,000 MG in sodium chloride 0.9% (plus) 50 ML 100 MG IV (07:54)
[2024-01-17] MEDS: dextrose 5%-lactated ringers 1,000 ML 125 ML IV (07:54)
[2024-01-17 07:55] LABS: Basophils % 0.4 %; Eosinophils # 0.1 10^3/uL (0.0-0.8); Hematocrit 36.5 % (36-47); Lymphocytes # 1.9 10^3/uL (0.8-4.8); Lymphocytes % 17.1 %; Mean Corpuscular HGB Conc 32.9 g/dL (30-55); Mean Corpuscular Hemoglobin 31.2 pg (27-33); Mean Corpuscular Volume 94.8 fl (85-98); Mean Platelet Volume 11.1 fL (7.4-10.4); Monocytes # 0.6 10^3/uL (0.2-0.9); Monocytes % 5.7 %; Neutrophils # 8.03 10^3/uL (1.8-7.7); Neutrophils % 74.1 %; Nucleated Red Blood Cells % 0 %; Platelet Count 124 10^3/cmm (157-399); Red Blood Count 3.85 10^6/uL (3.85-5.65); Red Cell Distribution Width 15.4 % (12.1-15.1); White Blood Count 10.83 10^3/uL (3.29-11.43)
--- NOTE | 2024-01-17 08:11 | PM.OPHPUD ---
Labor & Delivery H&P Update Date of Procedure: January 17, 2024 Date H&P Performed: 01/16/24 Changes to previous documentation: None Admission Diagnosis: 33-year-old 5 para 4-0-0-4 at 40 weeks and 6 days estimated gestational age presenting for induction Planned procedure: Vaginal delivery Other information: The patient presented to the hospital for induction. We discussed the benefits versus risks of induction versus waiting longer in her . We elected to proceed with induction. The patient has had a relatively unremarkable . Her blood type is A-. Her antibody screen was negative. She was GBS positive. Rubella immune. She passed her glucose screen. The remainder infectious disease profile was within normal limits.
[2024-01-17] MEDS: miSOPROStol 100 mcg tablet 25 MCG VAGINAL (10:19)
[2024-01-17] MEDS: ampicillin 1,000 MG in sodium chloride 0.9% (plus) 50 ML 100 MG IV ×2 (11:56→16:01)
--- NOTE | 2024-01-17 14:08 | P.ANESASSM_ITS ---
Pre-Anesthetic Assessment Height/Weight: Height 1.57 m Weight 70.987 kg Temp Pulse Resp BP O2 Del Method 97.9 F 69 17 119/61 Room Air 01/17/24 12:00 01/17/24 13:33 01/17/24 12:00 01/17/24 13:33 01/17/24 08:00 Familial anesthetic complications: None Was Beta Edilberto taken within 24 hours: N/A Was Clonidine taken within 24 hours: N/A Last intake: 1400 today solid food Social No alcohol and No tobacco Exam alert, oriented x 3, clear to auscultation bilaterally and regular rate & rhythm Airway Submandibular: within normal limits Cervical ROM: within normal limits Mallampati: Class II Dentition: full History/ROS No significant history except as noted and No significant complaints Pulmonary None reported CV/HEM None reported None reported Hepatic None reported GI None reported Metabolic None reported Musc/skel None reported Neuropsych None reported Anesthetic Plan ASA status: 2 Anesthesia: Anesthesia Evaluation, General and Regional (specify below) (Epidural) Medications/Allergies Home Medications Medication Instructions Recorded Confirmed Last Taken Type bupropion HCl 100 mg tablet,12 hr 100 mg PO DAILY 30 days #30 tabs 05/08/23 05/08/23 Unknown Rx sustained-release (Wellbutrin SR) etonogestrel 0.12 mg-ethinyl 1 vag ring vaginal .every 3 weeks 05/08/23 05/08/23 Unknown Rx estradiol 0.015 mg/24 hr vaginal 90 days #12 ea ring (NuvaRing) Allergies Allergy/AdvReac Type Severity Reaction Status Date / Time No Known Allergies Allergy Verified 05/08/23 15:35 Current Medications Generic Name Dose Route Start Last Admin Trade Name Toddq PRN Reason Stop Dose Admin Dextrose/Lactated Ringer's 1,000 mls @ 125 mls/hr 01/17/24 07:45 01/17/24 12:00 Dextrose 5%-Lactated Ringers IV 125 mls/hr .Q8H MEHREEN Infusion Ampicillin Sodium 1,000 mg/ 50 mls @ 100 mls/hr 01/17/24 11:45 01/17/24 11:56 Sodium Chloride IV 100 mls/hr Q4H MEHREEN Administration Protocol [facility] Anesthesia Family History Grandmother Ovarian cancer Paternal Hypertension Maternal Grandfather Diabetes Maternal Hypertension Maternal Denies family history of CAD (coronary artery disease) Clotting disorder Hyperlipidemia Chronic kidney disease (CKD) Bleeding disorder Thyroid disease Stroke Social History Smoking and tobacco/nicotine status: former use of tobacco/nicotine Alcohol intake: never Substance/Drug Use: never Female Reproductive History : 5 Data Anesthesia 01/17/24 07:30 Short CBC 01/17/24 Range/Units 07:30 WBC 10.83 (3.29-11.43) 10^3/uL Hgb 12.00 (11.27-16.99) g/dL Hct 36.5 (36-47) % MCV 94.8 (85-98) fl Plt Count 124 L (157-399) 10^3/cmm Neut % (Auto) 74.1 % Neut # (Auto) 8.03 H (1.8-7.7) 10^3/uL Blood Bank 01/17/24 07:30 Blood Type A Negative Rho(D) Type Rh negative Antibody Screen Negative Cardiac Studies: 2 No Data to Display
[2024-01-17] MEDS: oxytocin 30 UNIT/500 ML BAG IV (14:23)
[2024-01-17] MEDS: lactated ringers 1,000 ML 999 ML IV (14:46)
[2024-01-17] MEDS: ROPivacaine premix 100 MG/50 ML PREMIX 13 MG EPIDURAL (15:43)
--- NOTE | 2024-01-17 15:51 | P.ANES_ITS ---
Anesthesia Procedures Procedure/Date: 01/17/24 Epidural: Time Out Performed: Yes Consents Signed: Procedure Consent Consent: from patient and patient agrees to proceed Lumbar Level: L3-L4 Epidural position: sitting Epidural procedure: sterile prep of area, 1% lidocaine to numb the area, negative for paresthesia passed, neg for paresthesia, test dose given and sterile dressing applied Additional Comments: infusion started at 13 ml per hour with 5ml every 15 min as CANCER PROGRAM DIRECTOR. First pass with YARELIS with saline without complications.
[2024-01-17] MEDS: acetaminophen 325 mg Tablet 650 MG PO (17:43)
--- NOTE | 2024-01-17 17:48 | P.PCNOB_ITS ---
Delivery Note: Date of delivery: January 17, 2024 Pre-delivery diagnoses: 33-year-old 5 para 4 004 at 40 w eeks estimated gestational age History History History 5 Term 4 0 Miscarriages/Ectopic 0 Living Children 4 A&P Assessment and plan (1) 40 weeks gestation of : I anticipate routine care. (2) Spontaneous vaginal delivery: Coding Level of Care Code Acute Code for Chg Fwd Diagnoses 40 weeks gestation of Z3A.40 Spontaneous vaginal delivery O80
[2024-01-18 01:30] VITALS: BP 113/71; PULSE 79; RESP 16; TEMP 36.7; O2SAT 97
[2024-01-18 04:00] VITALS: BP 109/72; PULSE 74; RESP 14; TEMP 36.7; O2SAT 99
--- NOTE | 2024-01-18 07:16 | P.DS_ITS ---
Discharge Providers JUNIOR DATABASE ADMINISTRATOR Date of Admission: 01/17/24 07:12 Date of Discharge: 01/18/24 Attending Provider at Admission: Christophe Leigh MD Attending Provider at Discharge: Christophe Leigh MD Primary Care Provider: Christophe Leigh MD Diagnoses at Discharge Discharge Diagnosis (1) 40 weeks gestation of : Status: Acute (2) Spontaneous vaginal delivery: Status: Acute Reason for Visit Reason for Visit: IOL Hospital Course Hospital Course The patient presented to the hospital at 40 weeks and 6 days for induction. She is started on GBS protocol. She is then placed on Cytotec 25 mcg. She was then placed on Pitocin. The patient did well throughout her labor. She had an unremarkable vaginal delivery. There were no tears or other complications. Her course was also been unremarkable. Her bleeding has been within normal limits. Her pain is been well-controlled. There have been no concerns. Her postdelivery CBC is still pending. Information Peripartum Data: Infant Delivery Method: Vaginal Physical Exam Narrative: The patient is alert. She appears comfortable. Her heart has a regular rate and rhythm with no murmurs appreciated. Lungs are clear to auscultation bilaterally. Her fundus is firm and below the umbilicus. Urinary Catheter Management: Zheng: Cath Placed During This Visit: yes, but has since been removed by the nurse Reason for Continuing Indwelling Catheter: Decision to DC Catheter Urinary Catheter Date of Insertion: 01/17/24 Urinary Catheter Time of Insertion: 16:10 Date Urinary Catheter Removed: 01/17/24 Time Urinary Catheter Discontinued: 17:05 History History History 5 Term 4 0 Miscarriages/Ectopic 0 Living Children 4 Discharge Data Studies Completed and Pending Pending at discharge Category Date Time Status Complete Crossmatch Routine Lab 01/17/24 07:30 Results Maternal Hemorrhage Scrn Routine Lab 01/18/24 05:30 Ordered Hemagram Timed Lab 01/18/24 07:08 Ordered Rho D Immune Globulin Routine Lab 01/17/24 07:30 Results Type and Screen Routine Lab 01/17/24 07:30 Results Laboratory Results WBC 10.83 10^3/uL (3.29-11.43) 01/17/24 07:30 RBC 3.85 10^6/uL (3.85-5.65) 01/17/24 07:30 Hgb 12.00 g/dL (11.27-16.99) 01/17/24 07:30 Hct 36.5 % (36-47) 01/17/24 07:30 MCV 94.8 fl (85-98) 01/17/24 07:30 MCH 31.2 pg (27-33) 01/17/24 07:30 MCHC 32.9 g/dL (30-55) 01/17/24 07:30 RDW 15.4 % (12.1-15.1) H 01/17/24 07:30 Plt Count 124 10^3/cmm (157-399) L 01/17/24 07:30 MPV 11.1 fL (7.4-10.4) H 01/17/24 07:30 Neut % (Auto) 74.1 % 01/17/24 07:30 Lymph % (Auto) 17.1 % 01/17/24 07:30 [place] % (Auto) 5.7 % 01/17/24 07:30 Eos % (Auto) 1.0 % 01/17/24 07:30 Baso % (Auto) 0.4 % 01/17/24 07:30 Neut # (Auto) 8.03 10^3/uL (1.8-7.7) H 01/17/24 07:30 Lymph # (Auto) 1.9 10^3/uL (0.8-4.8) 01/17/24 07:30 [place] # (Auto) 0.6 10^3/uL (0.2-0.9) 01/17/24 07:30 Eos # (Auto) 0.1 10^3/uL (0.0-0.8) 01/17/24 07:30 Baso # (Auto) 0.0 10^3/uL (0.0-0.1) 01/17/24 07:30 Nucleated RBC % (auto) 0 % 01/17/24 07:30 Nucleated RBCs # 0.0 /100WBC 01/17/24 07:30 Blood Type A Negative 01/17/24 07:30 Rho(D) Type Rh negative 01/17/24 07:30 Antibody Screen Negative 01/17/24 07:30 Vitals Last Vital Signs Temp 98.1 F 01/18/24 01:30 Pulse 79 01/18/24 01:30 Resp 16 01/18/24 01:30 BP 113/71 01/18/24 01:30 Pulse Ox 97 01/18/24 01:30 O2 Del Method Room Air 01/18/24 01:30 Results Labs OB ([facility]): Obstetrics US 07/02/21 Blood Type A Negative 01/17/24 Antibody Screen Negative 01/17/24 Hct 36.5 % (36-47) 01/17/24 Hgb 12.00 g/dL (11.27-16.99) 01/17/24 Rho(D) Type Rh negative 01/17/24 Plt Count 124 10^3/cmm (157-399) L 01/17/24 Ser , Semi-Qnt 77881.00 mIU/mL 03/25/21 Discharge Plan Discharge Patient Disposition: Home Condition: Stable Prescriptions: New ibuprofen 800 mg Tablet 800 mg PO TID Qty: 45 0RF Vitamin 27 mg iron- 800 mcg Tablet 1 tab PO DAILY Qty: 90 0RF Discontinued etonogestrel-ethinyl estradiol [NuvaRing] 0.12-0.015 mg/24 hr ring 1 vag ring vaginal .every 3 weeks 90 Days Qty: 12 0RF bupropion HCl [Wellbutrin SR] 100 mg tablet sustained-release 12 hr 100 mg PO DAILY 30 Days Qty: 30 0RF Discharge Orders: Discharge Order (Routine); Ordered 01/18/24 Ordered By: Christophe Leigh Referrals: Christophe Leigh MD [Primary Care Provider] - 6 Weeks Discharge Diet: Advance as tolerated Discharge Activity: Resume usual activity Patient Instructions: Opioid Safety Discharge Attestations JUNIOR DATABASE ADMINISTRATOR Time Spent in Discharge Care*: less than 30 min Coding Level of Care Code Acute Code for Chg Fwd Diagnoses 40 weeks gestation of Z3A.40 Spontaneous vaginal delivery O80
[2024-01-18 07:25] LABS: Hematocrit 35.3 % (36-47); Mean Corpuscular HGB Conc 32.3 g/dL (30-55); Mean Corpuscular Volume 95.9 fl (85-98); Mean Platelet Volume 10.8 fL (7.4-10.4); Platelet Count 120 10^3/cmm (157-399); Red Blood Count 3.68 10^6/uL (3.85-5.65); Red Cell Distribution Width 15.2 % (12.1-15.1); White Blood Count 10.75 10^3/uL (3.29-11.43)
--- NOTE | 2024-01-18 09:27 | ANE.PACU2 ---
Inpatient post-anesthesia follow up: Vital signs: Temperature 98.1 F Pulse Rate 74 Respiratory Rate 14 Blood Pressure 109/72 Pulse Oximetry 99 Oxygen Delivery Me thod Room Air Oxygen Flow Rate Fraction of Inspir ed Oxygen Hydration adequate: Yes Nausea and vomiting: No Mental status: Baseline Additional Comments: no apparent anesthetic complications noted Epidural Start/End: Epidural Start Date: 01/17/24 Epidural Start Time: 15:40 Epidural End Date: 01/17/24 Epidural End Time: 09:27
[2024-01-18 10:00] VITALS: BP 118/69; PULSE 71; RESP 16; TEMP 36.8; O2SAT 99
[2024-01-18 18:00] VITALS: BP 124/72; PULSE 73; RESP 18; TEMP 37.2; O2SAT 99
[2024-01-18 18:15] VITALS: BP 124/72; PULSE 73; RESP 18; TEMP 37.2; O2SAT 99
--- NOTE | 2024-01-18 18:20 | PC.NURSE ---
Pt declined rhogam injection
== END 2024-01-18 18:15 | disposition home or self-care (01) | DRG 807 ==
LOC: OPOB 07:12 → OBGYN 07:12
PROVIDERS: Admitting Provider Family Medicine; PCP Family Medicine; Visit Provider Family Medicine
DX: O99.824 Streptococcus B carrier state complicating childbirth (principal); Z37.0 Single live birth; O48.0 Post-term pregnancy; Z3A.40 40 weeks gestation of pregnancy
CPT/HCPCS: 36415; 51702; 59025; 59409; 85025; 85027; 85460; 86850; 86900; J0290; J2590; J2795; J7120; J7121; J9999

== ENCOUNTER → 2024-07-16 07:56 | Outpatient (BNVA) | payer BC, SELFPAY | PROVIDERS: PCP Family Medicine; Visit Provider Registered Nurse | DX: Z11.3 Encounter for screening for infections with a predominantly sexual mode of transmission (principal); N39.0 Urinary tract infection, site not specified | CPT/HCPCS: 81000; 87086; 87491; 87591 ==

== ENCOUNTER 2024-07-19 08:02 | Outpatient (CLI) | payer BC, MEDICAID, SELFPAY ==
--- NOTE | 2024-07-19 07:45 | US_ITS ---
WS: [id number] Complete ABDOMINAL ULTRASOUND HISTORY: R10.31 - Right lower quadrant pain COMPARISON: None available. Liver: 17.7 cm in length. Normal size liver and echogenicity. No bile duct dilatation or mass. Portal Vein: Normal hepatopetal flow with monophasic waveform. Gallbladder: Normally distended gallbladder with no stones or wall thickening. CBD: 0.4 cm Pancreas: Normal size and echogenicity. Right kidney: 10.1 cm x 4.0 x 4.0 cm. Cortex:0.8 cm. Normal size and echogenicity. No hydronephrosis or mass. Left kidney: 10.8 cm x 4.6 cm x 3.8 cm. Cortex: 1.1 cm. Normal size and echogenicity. No hydronephrosis or mass. Spleen: 11.9 cm. Normal size and echogenicity. Aorta and IVC: Unremarkable abdominal aorta and IVC. US/US abdomen complete* [id number] Impression: Normal complete abdomen ultrasound.
--- NOTE | 2024-07-19 07:45 | US_ITS ---
WS: [id number] US pelvic complete* [id number] HISTORY: R10.31 - Right lower quadrant pain COMPARISON: None available. Uterus: 8.5 cm x 5.2 cm x 3.8 cm. Normal size anteverted uterus. No fibroid or mass. Endometrium: 1.0 cm. Normal. Right ovary: 3.4 cm x 3.0 cm x 1.5 cm. Normal size and vascularity, no cystic or solid masses. Severa l small peripheral follicles. Left ovary: 3.2 cm x 3.1 cm x 2.1 cm. Normal size and vascularity, no cystic or solid masses. Several small peripheral follicles. No free fluid in the cul-de-sac. US/US pelv w/transvag [id number] IMPRESSION: 1. Normal endometrium. 2. Normal size ovaries. There are numerous small peripheral follicles within e ach ovary. No cyst or solid mass.
== END 2024-07-19 08:03 | disposition home or self-care (01) ==
LOC: RAD 08:04
PROVIDERS: PCP Family Medicine; Visit Provider Registered Nurse
DX: R10.31 Right lower quadrant pain (principal)
CPT/HCPCS: 76700; 76830; 76856

== ENCOUNTER → 2024-07-25 12:06 | Outpatient (BNVA) | payer BC, MEDICAID, SELFPAY | PROVIDERS: PCP Family Medicine; Visit Provider Registered Nurse | DX: R87.612 Low grade squamous intraepithelial lesion on cytologic smear of cervix (LGSIL) (principal); R10.2 Pelvic and perineal pain | CPT/HCPCS: 87070; 87205; 87624 ==